=== PATIENT | male | born 1940 | race Caucasian/White ===

== ENCOUNTER → 2019-08-08 | Outpatient (CLI) | payer OTHER ==
[~2019-08-08] MED LIST: ASPI-555 PO; ATOR40TA69 PO; ATOR40TA71 PO; METO25TA6 PO; METO5AMP IV; TRAM50TA4 PO
== END | disposition home or self-care (01) ==
LOC: OIH 08:39
PROVIDERS: ATTEND Family Medicine
DX: M19.022 Primary osteoarthritis, left elbow (principal)
CPT/HCPCS: 73080